=== PATIENT | male | born 1940 | race Caucasian/White ===

== ENCOUNTER 2016-07-28 09:30 | Outpatient (RCR) | payer MEDICARE ==
[~2016-07-28 09:30] MED LIST: ALDACTONE 25MG25 M1 PO; CHILDREN'S CHEW1 CT2 PO; COUMADIN 6MG6 MG/TAB PO; EPA/GLA1 SGL PO; LEVAQUIN 5500 MG/TA1 PO; TOPROL XL 25MG25 MG PO; TYLENOL 325MG325 MG PO; VITAMIN B COMPL1 SGL PO; ZOCOR 20MG20 MG PO
== END 2016-08-10 07:59 | disposition still patient (30) ==
LOC: WSPT 09:30
DX: R53.1 Weakness (principal); R26.9 Unspecified abnormalities of gait and mobility
CPT/HCPCS: G8978-GP; G8979-GP; G8980-GP

== ENCOUNTER → 2017-08-07 | Outpatient (CLI) | payer MEDICARE | LOC: COL.RAD 13:00 | DX: N50.3 Cyst of epididymis (principal); N50.89 Other specified disorders of the male genital organs ==

== ENCOUNTER → 2019-07-05 | Outpatient (CLI) | payer MEDICARE | LOC: COL.RAD 09:41 | DX: Z09 Encounter for follow-up examination after completed treatment for conditions other than malignant neoplasm (principal); Z98.890 Other specified postprocedural states ==

== ENCOUNTER → 2021-02-23 | Outpatient (CLI) | payer MEDICARE | LOC: COL.VAS 13:00 | DX: I48.91 Unspecified atrial fibrillation (principal); I65.22 Occlusion and stenosis of left carotid artery; R47.01 Aphasia ==

== ENCOUNTER 2021-09-22 15:00 | Outpatient (RCR) | payer MEDICARE | END 2021-09-29 09:36 | disposition home or self-care (01) | LOC: WSPT 15:00 | DX: M25.551 Pain in right hip (principal); R53.1 Weakness ==